=== PATIENT | male | born 1990 | race Caucasian/White ===

== ENCOUNTER 2021-10-16 15:08 | Emergency (ER) | payer BC, SELFPAY ==
[2021-10-16] MEDS ORDERED: Boostrix 0.5 ML (Tdap) VIAL ONE (16:13)
== END 2021-10-16 16:25 | disposition home or self-care (01) ==
LOC: ERS 15:08
DX: S52.125A Nondisplaced fracture of head of left radius, initial encounter for closed fracture (principal); S52.002A Unspecified fracture of upper end of left ulna, initial encounter for closed fracture; W19.XXXA Unspecified fall, initial encounter
CPT/HCPCS: 24650; 90471; 90715

== ENCOUNTER 2022-05-08 09:36 | Outpatient (CLI) | payer OTHER | END 2022-05-08 09:37 | disposition home or self-care (01) | LOC: BICRAD 09:36 | PROVIDERS: ATTEND Internal Medicine | DX: Z02.71 Encounter for disability determination (principal); M41.9 Scoliosis, unspecified; M43.17 Spondylolisthesis, lumbosacral region | CPT/HCPCS: 72100 ==